=== PATIENT | male | born 1980 | race African-American/Black ===

== ENCOUNTER 2019-12-24 14:49 | Outpatient (CLI) | payer OTHER ==
--- NOTE | 2019-12-24 19:51 | CT ---
CT ABDOMEN AND PELVIS PERFORMED WITHOUT CONTRAST ENHANCEMENT: 12/24/19 HISTORY: Abdominal pain. The lung bases are clear. The liver, spleen, pancreas and gallbladder regions appear unremarkable given the limitations of a no ncontrast exam. Right and left adrenal glands and right and left kidneys are normal in size and appearance. No obstru ction. No renal calculi. No significant periaortic or mesenteric adenopathy. There is a lack of intra -abdominal fat which degrades detail. CT OF PELVIS PERFORMED WITHOUT CONTRAST ENHANCEMENT: No evidence of adenopathy, mass, or free fluid. Appendix is difficult to definitively identify. I see no evidence for appendicitis. Review of osseous structures show no significant findings. IMPRESSION: No acute findings of the abdomen or pelvis. POS: [facility]
== END 2019-12-24 14:50 | disposition home or self-care (01) ==
LOC: NAV CT 14:49
PROVIDERS: ATTEND Internal Medicine
DX: R10.9 Unspecified abdominal pain (principal)
CPT/HCPCS: 74176